=== PATIENT | female | born 1965 | race Caucasian/White ===

== ENCOUNTER 2024-12-14 06:10 | Emergency (ER) | payer BC ==
[~2024-12-14] VITALS: Ht 162.6 cm; Wt 53.5 kg
[2024-12-14] MEDS ORDERED: DiphenhydrAMINE HCl 50 MG/ML 1ML Vial IV ONE (06:50)
[2024-12-14] MEDS ORDERED: Ketorolac Tromethamine 15mg Vial IV ONE (06:50)
[2024-12-14] MEDS ORDERED: Dexamethasone Sod Phos 10 MG/ML 1ML VIAL IV ONE (06:50)
[2024-12-14] MEDS ORDERED: Prochlorperazine Edisylate 10 mg Vial IV ONE (06:50)
[2024-12-14] MEDS ORDERED: DEXA1 PO (08:00)
[2024-12-14] MEDS ORDERED: PROC5 PO (08:01)
== END 2024-12-14 08:15 | disposition home or self-care (01) ==
LOC: ER 06:10
DX: R51.9 Headache, unspecified (principal); Z88.0 Allergy status to penicillin
CPT/HCPCS: 96361; 96374; 96375; 99283-25; J0780; J1100; J1200; J1885; J7120